=== PATIENT | female | born 2000 | race Caucasian/White ===

== ENCOUNTER 2024-03-29 19:18 | Outpatient (REF) | payer OTHER, SELFPAY ==
[2024-04-04 10:09] LABS: Age Gdln ACOG Testing Note (.); IGP, rfx Aptima HPV ASCU Note (.)
== END 2024-03-29 19:19 | disposition home or self-care (01) ==
LOC: LAB 19:18
PROVIDERS: Visit Provider Physician Assistant
DX: Z01.419 Encounter for gynecological examination (general) (routine) without abnormal findings (principal)
CPT/HCPCS: G0145

== ENCOUNTER 2025-08-05 14:38 | Emergency (ER) | payer BC, SELFPAY ==
--- OUTSIDE RECORDS SUMMARY | 2025-08-01 20:33 | XMS_ITS | Encounter Summary ---
Author Organization [facility] [employer] [facility] tem Address [id number] [address] [place] [address] Care Team Providers Care Floor Covering Printer Name Role Phone Donald Singleton MD Primary Care Provider [phone] Reason for Visit * Reason Comments Dizziness Pt reports lighthead edness and flutter feeling in her chest. Pt reports headaches and tingling bilateral hands at times. Pt started metoprolol about a month ago. Encounter Details Date Type Department Care Team (Late st Contact Info) Description 08/01/2025 8:33 PM EDT - 08/01/2025 10:25 PM EDT Emergency [facility] - Emergency [address] [place] [address] Tre Cerrato [address] [facility], [address]rd [place] [address] Lightheadedness (Primary Dx); Acute cystitis without hematuria Discharge Disposition: Home Social History Tobacco Use Types Packs/Day Years Used Date Smoking Tobacco: Former Cigarettes Smokeless Tobacco: Never Comments:3 cigarettes per da y Alcohol Use Standard Drinks/Week Comments Not Currently 0 (1 standard drink = 0.6 oz pur e alcohol) Childcare Answer Date Recorded Childcare Unknown 05/09/2019 Employment Answer Date Recorded Employment Unknown 05/09/2019 Hunger Screening Answer Date Recorded Within the past 12 months we worried whether our food would run out before we got money to buy more. Never True 08/01/2025 Within the past 12 months th e food we bought just didn't last and we didn't have money to get more. Never True 08/01/2025 Purpose - Life Answer Date Recorded Purpose and direction in life Unknown Comments No Sex and Gender Information Value Date Recorded Sex Assigned at Female 04/22/2021 7:15 PM EDT Legal Sex Female 12:13 PM EDT Gender Identity Female 04/22/2021 7:15 PM EDT Sexual Orientation Straight 04/22/2021 7: 15 PM EDT documented as of this encounter Last Filed Vital Signs Vital Sign Reading Time Taken Comments Blood Pressure 109/55 08/01/2025 8:38 PM EDT Pulse 69 08/01/2025 8:38 PM EDT Temperature 37 C (98.6 F) 08/01/2025 7:54 PM EDT Respiratory Rate 16 08/01/2025 8:38 PM EDT Oxygen Saturation 97% 08/01/2025 8:38 PM EDT Inhaled Oxygen Concentration - - Weight 68 kg (150 lb) 08/01/2025 7:54 PM EDT Height 157.5 cm (5' 2 ) 08/01/2025 7:54 PM EDT Body Mass Index 27.44 08/01/2025 7:54 PM EDT documented in this encounter Discharge Instructions * Discharge Instructions* ROSIE Garcia - 08/01/2025 10:05 PM EDT Change positions slowly from lying to sitting to standing Drink plenty of fluids Complete your course of antibiotics Please schedule your outpatient testing and follow-up with your proofer apprentice Return to ER immediately for new worse or worrisome concerns * Attachments The following attachments cannot be sent through Care Everywhere. * Urinary Tract Infection? Adult ED ([place]) documented in this encounter Medications at Time of Discharge CEPHalexin (KEFLEX) 500 mg capsule Take 1 capsule (500 mg total) by mouth in the morning and 1 capsule (500 mg total) before bedtime. Do all this for 10 days. 20 capsule 08/01/2025 08/11/2025 metoprolol succinate XL (TOPROL XL) 25 mg 24 hr tablet Take 0.5 tablets (12.5 mg total) by mouth in the morning. 45 tablet 3 07/04/2025 documented as of this encounter ED Notes * Tre Cerrato, - 08/01/2025 8:56 PM EDT Images from the original note were not included. [facility] - EMERGENCY Pt Name: Ángela Tracy Birthdate: 2000 Chief Complaint: Chief Complaint Patient presents with Dizziness Pt reports lightheadedness and flutter feeling in her chest. Pt reports headaches and tingling bilateral hands at times. Pt started metoprolol about a month ago. History of Present Illness: Patient here for evaluation of feeling lightheaded dizzy and heart palpitations. Patient was evaluated by Cardiology and had an outpatient Holter monitor showing occasional PVCs. She was started on low-dose metoprolol 12.5 mg q.d. On the medications for about 1 month. She notices the palpitations usually when she is up moving around. Occasionally she has dull low midsternal to epigastric discomfort and occasional shortness of breath. She has also been occasionally nauseated but not vomiting andhaving intermittent headaches in the morning. Patient is also ordered by Cardiology to have thyroidlevels drawn as well as echocardiogram and stress test but she is not scheduled any of these tests.She feels lightheaded and dizzy when she gets up. She uses a tobacco vape. Denies any history of hypertension hyperlipidemia, or diabetes. Denies anyfamily history of cardiac disease. She does have anxiety and depression in his currently on Cymbalta which she has been out of for the past couple of days and has a refill waiting for her at the pharmacy. She occasionally feels hot and feels tingling in her hands Past Medical History: Past Medical History: Diagnosis Date Anxiety Depression PONV (postoperative nausea and vomiting) Past Surgical History: Past Surgical History: Procedure Laterality Date ARTHROSCOPY KNEE Left 10/17/2018 Performed by Jr Juan A Garcia DO at [facility] SECTION KNEE ARTHROSCOPY Left 2013 LAPAROSCOPIC CHOLECYSTECTOMY N/A 05/05/2021 Performed by Rohith Valentin DO at [facility] Family History: Family History Problem Relation Age of Onset No Known Problems Mother No Known Problems Father No Known Problems Sister No Known Problems Brother No Known Problems Son Social History: Social History Socioeconomic History Marital status: Tobacco Use Smoking status: Former Types: Cigarettes Smokeless tobacco: Never Tobacco comments: 3 cigarettes per day Vaping Use Vaping status: Every Day Substance and Sexual Activity Alcohol use: Not Currently Drug use: Yes Types: Marijuana Comment: few puffs daily Sexual activity: Defer Partners: Male Other Topics Concern Caffeine Use Yes Social Drivers of Health Financial Resource Strain: Low Risk (06/21/2025) Received from [facility] Overall Financial Resource Strain (CARDIA) Difficulty of Paying Living Expenses: Not very hard Food Insecurity: No Food Insecurity (08/01/2025) Hunger Screening Food Insecurity - Worry: Never True Food Insecurity - Inability: Never True Transportation Needs: No Transportation Needs (06/21/2025) Received from [facility] PRAPARE - Transportation Lack of Transportation (Medical): No Lack of Transportation (Non-Medical): No Physical Activity: Sufficiently Active (06/21/2025) Received from [facility] Exercise Vital Sign Days of Exercise per Week: 5 days Minutes of Exercise per Session: 30 min Stress: Stress Concern Present (06/21/2025) Received from [facility] Occupational Health - Occupational Stress Questionnaire Feeling of Stress : Rather much Social Connections: Socially Isolated (06/21/2025) Received from [facility] Social Connection and Isolation Panel [NHANES] Frequency of Communication with Friends and Family: Once a week Frequency of Social Gatherings with Friends and Family: Once a week Attends Holiness Services: Never Active Member of Clubs or Organizations: No Attends Club or Organization Meetings: Never Marital Status: Interpersonal Safety: Not At Risk (06/21/2025) Received from [facility] Humiliation, Afraid, Rape, and Kick questionnaire Fear of Current or Ex-Partner: No Emotionally Abused: No Physically Abused: No Sexually Abused: No Housing Instability: Low Risk (06/21/2025) Received from [facility] Housing Stability Vital Sign Unable to Pay for Housing in the Last Year: No Number of Times Moved in the Last Year: 0 Homeless in the Last Year: No Review of Systems: Review of Systems Physical Exam: ED Triage Vitals [08/01/251953] Temp Heart Rate Resp BP SpO2 37 ??C (98.6 ??F) 87 20 106/83 97 % Temp Source Heart Rate Source Patient Position BP Location FiO2 (%) Oral Pulse Ox Sitting Left arm -- Vitals: 08/01/25195308/01/252037 BP: 106/83 109/55 Temp: 37 ??C (98.6 ??F) TempSrc: Oral Pulse: 87 69 Resp: 20 16 SpO2: 97% 97% MAP (mmHg): 71 Height: 157.5 cm (5' 2 ) Weight: 68 kg (150 lb) 97 Physical Exam Vitals reviewed. HENT: Head: Normocephalic and atraumatic. Eyes: Conjunctiva/sclera: Conjunctivae normal. Cardiovascular: Rate and Rhythm: Normal rate. Pulmonary: Effort: Pulmonary effort is normal. Breath sounds: Normal breath sounds. Abdominal: General: There is no distension. Palpations: Abdomen is soft. Musculoskeletal: General: Normal range of motion. Cervical back: Normal range of motion and neck supple. Skin: General: Skin is warm and dry. Neurological: General: No focal deficit present. Mental Status: She is alert and oriented to person, place, and time. GCS: GCS eye subscore is 4. GCS verbal subscore is 5. GCS motor subscore is 6. Procedure: Procedures Re-evaluation: Re-Evaluation Medical Decision Making Patient here for episodes of dizziness and lightheadedness with standing as well as heart palpitations tingling in the hands. She is in a normal sinus rhythm. She had recently underwent cardiology evaluation for palpitations with the findings of PVCs on her Holter monitor for which she was started on metoprolol. Orthostatics were positive in so much as her heart rate went up with standing. She was given intravenous fluids here. Urine is also positive for moderate leuks which was sent for culture and she will be started empirically on Keflex. He does have some outpatient testing including stress test and ultrasound which still needs to be completed and I encouraged her to call to schedule these. Thyroid levels cardiac markers were all within normal limits. She will be discharged home to follow up with the proofer apprentice and further outpatient testing but I advised her to return in the meantime for new worse or worrisome concerns. Patient verbalized understanding in his agreeable to this plan of care Amount and/or Complexity of Data Reviewed Labs: ordered. Details: Labs notable for: Urine with moderate leuks sent for culture ECG/medicine tests: ordered. Risk Prescription drug management. ED Course: ED Course as of 08/01/252322Aug 01, 20252204 Patient is was updated on test results. Plan to treat for urinary tract infection and send urine for culture. Advised to call to schedule her outpatient testing, follow up with her primary doctor and proofer apprentice but return in the meantime for new worse or worrisome concerns. Patient verbalized understanding and she is agreeable to plan of care [RK] ED Course User Index [RK] Cecilia Richmond APRN-MINI Clinical Impressions as of 08/01/25 232 Lightheadedness Acute cystitis without hematuria . ED Disposition ED Disposition Discharge Date/Time TueAug 01, 2025 10:05 PM Comment At the time of discharge, the plan has been discussed with the patient regarding the diagnosis and prognosis. All questions have been answered. Verbal discharge instructions were discussed with the patient. The patient has been advised to follow up w ith their Primary Care Provider and Specialist call to schedule. The patient was also instructed to return to the ED if their symptoms change, worsen, new symptoms arise or if they have any additional concerns. Medications Prescribed this Visit Sig CEPHalexin (KEFLEX) 500 mg capsule Take 1 capsule (500 mg total) by mouth in the morning and 1 capsule (500 mg total) before bedtime. Do all this for 10 days. Shared/Split Visit 21:02 EDT Marcelo Mazariegos (scribe), scribed for and in the presence of: Dr. Michael Cerrato who performed the above service. IDr. Michael personally performed a [id number] diagnostic evaluation on this patient. I personally made and approved the management plan for this patient and take responsibility for the patient management. Additional Notes/Findings: Ángela Tracy is a 25 y.o. female presenting to the ED for chief complaint of dizziness. Pt states that she started having issues in December and it took some timefor Cardiology to get her in. Pt reports that she was given beta blockers about a month ago. Pt notes that this morning she woke up feeling like I was in zero gravity. Pt states that she also felt l earl her heart was skipping beats or beating too hard. Pt reports that her symptoms were the worst while standing up. Exam findings as follows: Constitutional: Awake and alert HENT: Head normocephalic and atraumatic Eyes: conjunctiva unremarkable Cardiovascular: Heart rate regular Pulmonary: Easy work of breathing, speaking full sentences Abdominal: Flat and non-distended Skin: Warm and dry Musculoskeletal: Moving all extremities spontaneously Neurological: Alert and oriented x3 Please note that portions of this note were completed with a voice recognition program. Efforts were made to edit the dictations but occasionally words are mis-transcribed. ROSIE Garcia 08/01/252101 Marcelo Feldman 08/01/252107 Marcelo Feldman 08/01/252110 ROSIE Garcia 08/01/25 2319 Tre Cerrato DO 08/01/25 2323 documented in this encounter Plan of Treatment Upcoming Encounters Date Type Department Care Team (Late st Contact Info) Description 09/19/2025 9:30 AM EDT Office Visit [facility] [address] [place] [id number] Nixon Peterson MD [address] [place] [address] documented as of this encounter Procedures Procedure Name Priority Date/Time Associated Diagnosis Comments TROP I, HIGH SENSITIVITY 1 HOUR STAT 08/01/2025 9:09 PM EDT POCT , URINE (NUCG) Routine 08/01/2025 9:07 PM EDT POCT NURSING URINE MACROSCOPIC UA Routine 08/01/2025 9:05 PM EDT ER EXTRA URINE MARBLE STAT 08/01/2025 8:51 PM EDT ER EXTRA URINE CULTURE STAT 08/01/2025 8:51 PM EDT ER EXTRA URINE STAT 08/01/2025 8:51 PM EDT TROPONIN I, HIGH SENSITIVITY 0 HOUR STAT 08/01/2025 8:11 PM EDT EXTRA TUBES BLUE TOP Routine 08/01/2025 8:11 PM EDT TROPONIN I, HIGH SENSITIVITY 0 HOUR STAT 08/01/2025 8:11 PM EDT THYROID PROFILE INCLUDES TSH FT4 STAT Add-on 08/01/2025 8:11 PM EDT EXTRA TUBES Routine 08/01/2025 8:11 PM EDT CBC WITH AUTO DIFFERENTIAL STAT 08/01/2025 8:11 PM EDT MAGNESIUM STAT Add-on 08/01/2025 8:11 PM EDT COMPREHENSIVE METABOLIC PANEL STAT 08/01/2025 8:11 PM EDT ECG 12-LEAD STAT 08/01/2025 7:58 PM EDT documented in this encounter Results * Troponin I, High Sensitivity 1 Hour (08/01/2025 9:09 PM EDT) [facility] TROPONIN I, HIGH SENSITIVITY <2 <16 ng/L 08/01/2025 9:39 PM EDT [facility] Blood Venous blood / Unknown Venipuncture / Unknown 08/01/2025 9:09 PM EDT 08/01/2025 9:11 PM EDT us Tre Cerrato DO LAB BLOOD ORDERABLES Final Resul t [facility] [address] [place] [address], [place] * POCT , urine (08/01/2025 9:07 PM EDT) [facility] POC Urine Negative Negative, Indeterminate 08/01/2025 9:00 PM EDT [facility] Urine 08/01/2025 9:07 PM EDT 08/01/2025 9:00 PM EDT us Tre Cerrato DO POINT OF CARE TEST ORDERABLES Fi nal Result [facility] [address] [place] [address], [place] * (ABNORMAL) POCT Nursing Urine Macroscopic UA (08/01/2025 9:05 PM EDT) POC Urine Specific [place] 1.020 1.010, 1.015, 1.020, 1.025 08/01/2025 8:54 PM EDT [facility] POC Urine Leukocyte Esterase Moderate(A) Negative 08/01/2025 8:54 PM EDT [facility] POC Urine Nitrite Negative Negative 08/01/2025 8:54 PM EDT [facility] POC Urine pH 7.0 5.0, 6.0, 6.5, 7.0, 7.5, 8.0, 8.5, 5.5 08/01/2025 8:54 PM EDT [facility] POC Urine Protein Negative Negative 08/01/2025 8:54 PM EDT [facility] POC Urine Glucose Negative Negative 08/01/2025 8:54 PM EDT [facility] POC Urine Ketones Negative Negative 08/01/2025 8:54 PM EDT [facility] POC Urine Urobilinogen 0.2 E.U./dL 08/01/2025 8:54 PM EDT [facility] POC Urine Bilirubin Negative Negative 08/01/2025 8:54 PM EDT [facility] POC Urine Blood/HGB Negative Negative 08/01/2025 8:54 PM EDT [facility] Urine 08/01/2025 9:05 PM EDT 08/01/2025 8:54 PM EDT Tre Cerrato DO POINT OF CARE TEST ORDERABLES Fi nal Result Performing Organization Address City/[facility] de Phone Number [address] [place] [address], [place] * Extra Urine [place] (08/01/2025 8:51 PM EDT) Extra Tube Auto Resulted 08/01/2025 10:01 PM EDT [facility] Urine Urine specimen collection, clean catch / Unknown 08/01/2025 8:51 PM EDT 08/01/2025 9:11 PM EDT Tre Cerrato DO URINE ORDERABLES Final Result Performing Organization Address [facility] de Phone Number [address] [place] [address], [place] * Extra Urine Culture (08/01/2025 8:51 PM EDT) Extra Tube Auto Resulted 08/01/2025 10:01 PM EDT [facility] Urine Urine specimen collection, clean catch / Unknown 08/01/2025 8:51 PM EDT 08/01/2025 9:11 PM EDT Tre Cerrato DO URINE ORDERABLES Final Result Performing Organization Address City/[facility] de Phone Number [address] [place] [address], [place] * Extra Urine (08/01/2025 8:51 PM EDT) Extra Tube Auto Resulted 08/01/2025 10:01 PM EDT [facility] Urine Urine / Unknown 08/01/2025 8 :51 PM EDT 08/01/2025 9:11 PM EDT Tre Cerrato DO URINE ORDERABLES Final Result Performing Organization Address City/[facility] Co de Phone Number [address] [place] [address], [place] * Magnesium (08/01/2025 8:11 PM EDT) MAGNESIUM 2.1 1.8 - 2.6 mg/dL 08/01/2025 9:45 PM EDT [facility] Blood Venous blood / Unknown Venipuncture / Unknown 08/01/2025 8:11 PM EDT 08/01/2025 8:31 PM EDT Cecilia Richmond CIRCULAR DISTRIBUTOR-FIELD SERVICE CONSULTANT LAB BLOOD ORDERABLES Final Result Performing Organization Address City/[facility]/ZIP Co de Phone Number [address] [place] [address], [place] * Thyroid profile includes TSH FT4 (08/01/2025 8:11 PM EDT) FREE T4 0.90 0.61 - 1.60 ng/dL 08/01/2025 10:09 PM EDT [facility] TSH 0.97 0.49 - 4.67 uIU/mL 08/01/2025 10:09 PM EDT [facility] Blood Venous blood / Unknown Venipuncture / Unknown 08/01/2025 8:11 PM EDT 08/01/2025 8:31 PM EDT Cecilia Richmond CIRCULAR DISTRIBUTOR-FIELD SERVICE CONSULTANT LAB BLOOD ORDERABLES Final Result [address] [place] [address], [place] * Light Blue Top (08/01/2025 8:11 PM EDT) Extra Tube Auto Resulted 08/01/2025 10:01 PM EDT [facility] Blood Venous blood / Unknown 08/01/2025 8:11 PM EDT 08/01/2025 8:31 PM EDT [facility] [place] BLOOD ORDERABLES Final Resul t Performing Organization Address City/[facility]/ZIP Co de Phone Number [address] [place] [address], [place] * Troponin I, High Sensitivity 0 Hour (08/01/2025 8:11 PM EDT) TROPONIN I, HIGH SENSITIVITY <2 <16 ng/L 08/01/2025 9:05 PM EDT [facility] Blood Venous blood / Unknown Venipuncture / Unknown 08/01/2025 8:11 PM EDT 08/01/2025 8:31 PM EDT [facility] LAB BLOOD ORDERABLES Final Resul t Performing Organization Address City/[facility]/ZIP Co de Phone Number [address] [place] [address], [place] * Comprehensive metabolic panel (08/01/2025 8:11 PM EDT) SODIUM 138 134 - 146 mmol/L 08/01/2025 8:58 PM EDT [facility] POTASSIUM 3.9 3.5 - 5.0 mmol/L 08/01/2025 8:58 PM EDT [facility] CHLORIDE 108 98 - 109 mmol/L 08/01/2025 8:58 PM EDT [facility] CARBON DIOXIDE 22 22 - 32 mmol/L 08/01/2025 8:58 PM EDT [facility] ANION GAP 8 5 - 15 mmol/L 08/01/2025 8:58 PM EDT [facility] BLOOD UREA NITROGEN 13 5 - 23 mg/dL 08/01/2025 8:58 PM EDT [facility] CREATININE 0.83 0.40 - 1.00 mg/dL 08/01/2025 8:58 PM EDT [facility] Comment:METHOD TRACEABLE TO IDMS STANDARD GLUCOSE 88 65 - 99 mg/dL 08/01/2025 8:58 PM EDT [facility] CALCIUM 9.5 8.5 - 10.5 mg/dL 08/01/2025 8:58 PM EDT [facility] TOTAL PROTEIN 7.8 6.0 - 8.0 g/dL 08/01/2025 8:58 PM EDT [facility] ALBUMIN 4.6 3.2 - 5.3 g/dL 08/01/2025 8:58 PM EDT [facility] ALKALINE PHOSPHATASE 61 39 - 130 U/L 08/01/2025 8:58 PM EDT [facility] AST 19 <=41 U/L 08/01/2025 8:58 PM EDT [facility] ALT 13 <=31 U/L 08/01/2025 8:58 PM EDT [facility] BILIRUBIN,TOTAL 0.7 0.3 - 1.2 mg/dL 08/01/2025 8:58 PM EDT [facility] EGFR Non-Race Dependent >90 >=60 ml/min/1.7 3sq.m 08/01/2025 8:58 PM EDT [facility] Comment: eGFR not reported due to non-numeric value for Creatinine. Reported eGFR is based on the CKD-EPI 2020 equation that does not use a race coefficient. Blood Venous blood / Unknown Venipuncture / Unknown 08/01/2025 8:11 PM EDT 08/01/2025 8:31 PM EDT us Tre Cerrato DO LAB BLOOD ORDERABLES Final Resul t [facility] [address] [facility] [place] [address], * CBC auto differential (08/01/2025 8:11 PM EDT) WBC 6.4 4 - 11 x10E9/L 08/01/2025 8:47 PM EDT [facility] RBC Count 4.22 3.8 - 5.2 X10E12/L 08/01/2025 8:47 PM EDT [facility] Hemoglobin 13.1 11.7 - 15.5 g/dL 08/01/2025 8:47 PM EDT [facility] Hematocrit 38.2 35 - 47 % 08/01/2025 8:47 PM EDT [facility] MCV 91 80 - 100 fL 08/01/2025 8:47 PM EDT [facility] MCH 31.1 27 - 34 pg 08/01/2025 8:47 PM EDT [facility] MCHC 34.4 32 - 36 g/dL 08/01/2025 8:47 PM EDT [facility] RDW 12.6 11.5 - 15 % 08/01/2025 8:47 PM EDT [facility] Platelet Count 197 150 - 450 X10E9/L 08/01/2025 8:47 PM EDT [facility] MPV 10.3 7 - 12 fL 08/01/2025 8:47 PM EDT [facility] Neutrophils % 63.9 % 08/01/2025 8:47 PM EDT [facility] Lymphocytes % 25.8 % 08/01/2025 8:47 PM EDT [facility] Monocytes % 8.5 % 08/01/2025 8:47 PM EDT [facility] Eosinophils % 0.9 % 08/01/2025 8:47 PM EDT [facility] Basophils % 0.9 % 08/01/2025 8:47 PM EDT [facility] Neutrophils Absolute (A) 4.1 1.5 - 6.6 10*3/uL 08/01/2025 8:47 PM EDT [facility] Lymphocytes Absolute 1.7 1.0 - 3.5 10*3/uL 08/01/2025 8:47 PM EDT [facility] Monocytes Absolute 0.5 0.0 - 0.9 10*3/uL 08/01/2025 8:47 PM EDT [facility] Eosinophils Absolute 0.1 0.0 - 0.4 10*3/uL 08/01/2025 8:47 PM EDT [facility] Basophils Absolute 0.1 0.0 - 0.2 10*3/uL 08/01/2025 8:47 PM EDT [facility] Differential Type AUTOMATED DIFFERENTIAL 08/01/2025 8:47 PM EDT [facility] Blood Venous blood / Unknown Venipuncture / Unknown 08/01/2025 8:11 PM EDT 08/01/2025 8:31 PM EDT [facility] LAB BLOOD ORDERABLES Final Resul t [facility] [address] [place] [address], [place] * ECG 12 lead (08/01/2025 7:58 PM EDT) 08/01/2025 7:58 PM EDT Narrative TRACEMASTERVUE - 08/01/2025 11:23 PM EDT [facility] ECG ORDERABLES Final Result Performing Organization Address City/[facility]/ZIP Co de Phone Number TRACEMASTERVUE documented in this encounter Visit Diagnoses Diagnosis Lightheadedness- Primary Dizziness and giddiness Acute cystitis without hematuria documented in this encounter Administered Medications Inactive Administered Medications - up to 3 most recent administrations Medication Order MAR Action Action Date Dose Rate Site CEPHalexin (KEFLEX) capsule 500 mg 500 mg, oral, Once, On Mahsa 08/01/25 at 3, For 1 dose, Look-alike/sound-alike medication - verify indication for use., Indication: UTI Given 08/01/2025 10:00 PM EDT 500 mg sodium chloride 0.9 % bolus 750 mL, intravenous, at 1,451.6 mL/hr, Administer over 31 Minutes, Once, On Mahsa 08/01/25 at 3, For 1 dose New Bag 08/01/2025 9:19 PM EDT 750 mL 986 mL/hr sodium chloride 0.9 % flush 3 mL 3 mL, intravenous, As needed, line care, before and after each intermittent use, Starting on Mahsa 08/01/25 at 2110 documented in this encounter Active and Recently Administered Medications Times are shown in EDT. Scheduled Medication Order 07/30/2025 07/31/2025 08/01/2025 CEPHalexin (KEFLEX) capsule 500 mg (COMPLETED) 500 mg, oral, Once, On Mahsa 08/01/25 at 3, For 1 dose, Look-alike/sound-alike medication - verify indication for use., Indication: UTI 2199 (Given - Provid er: Claudia Thapa RN) sodium chloride 0.9 % bolus (COMPLETED) 750 mL, intravenous, at 1,451.6 mL/hr, Administer over 31 Minutes, Once, On Mahsa 08/01/25 at 2112, For 1 dose 2118 (New Bag - Prov ider: Claudia Thapa RN)2149 (Stop Bag - Provider: Claudia Thapa RN) PRN Medication Order 07/30/2025 07/31/2025 08/01/2025 sodium chloride 0.9 % flush 3 mL 3 mL, intravenous, As needed, line care, before and after each intermittent use, Starting on Mahsa 08/01/25 at 2110 documented in this encounter Care Teams Floor Covering Printer Relationship Specialty Start Date End Date Donald Singleton MD PCP - General Family Medicine 10/13/18 documented as of this encounter
[2025-08-05] VITALS (12 sets, daily range): BP systolic 114–115; BP diastolic 65–78; PULSE 44–81; TEMP 36.7; O2SAT 96–100; BMI 27.4
--- OUTSIDE RECORDS SUMMARY | 2025-08-05 13:37 | XMS_ITS | Encounter Summary ---
Author Organization [facility] Address [id number] [address] [place] [address] Care Team Providers Care Firepot Operator And Tender Name Role Phone Donald Singleton MD Primary Care Provider [phone] Reason for Visit * Reason Comments Anxiety Vomiting Encounter Details Date Type Department Care Team (Late st Contact Info) Description 08/05/2025 1:37 PM EDT - 08/05/2025 1:58 PM EDT Emergency [facility] [address] [place] [id number] Discharge Disposition: Left Without Treatment Social History Tobacco Use Types Packs/Day Years [...] got money to buy more. Never True 08/05/2025 Within the past 12 months th e food we bought just didn't last and we didn't have money to get more. Never True 08/05/2025 Purpose - Life Answer Date Recorded Purpose [...] Sign Reading Time Taken Comments Blood Pressure 108/75 08/05/2025 1:57 PM EDT Pulse 53 08/05/2025 1:57 PM EDT Temperature 36.8 C (98.3 F) 08/05/2025 1:57 PM EDT Respiratory Rate 19 08/05/2025 1:57 PM EDT Oxygen Saturation 100% 08/05/2025 1:57 PM EDT Inhaled Oxygen Concentration - - Weight - - Height - - Body Mass Index - - documented in this encounter Medications at Time [...] as of this encounter ED Notes * Luci Estevez RN - 08/05/2025 1:56 PM EDT Pt reports having panic attack this morning and has been throwing up ever since. documented in this encounter Plan of Treatment Upcoming Encounters Date Type Department Care Team (Late st Contact Info) Description 09/19/2025 9:30 AM EDT Office Visit [facility] [address] [place] [address] Nixon Peterson MD [address] [place] [facility] [place] [address] documented as of this encounter Visit Diagnoses Not on filedocumented in this encounter Care Teams Firepot Operator And Tender Relationship Specialty Start Date End Date Donald Singleton MD PCP - General Family Medicine 10/13/18 documented as of this encounter
--- OUTSIDE RECORDS SUMMARY | 2025-08-05 14:52 | XMS_ITS | Clinical Summary ---
Author Organization [facility] Address [address] [place] [address] Care Team Providers Care Aeronautical Engineering Technologist Name Role Phone Rina Espino NP Unavailable [phone] Donald Singleton MD Primary Care Provider [phone] Rina Espino ORTHOPEDIC DENTIST Unavailable [phone] Allergies Active Allergy Reactions Criticality Noted Date Comments Latex Hives,Itching,Rash,Swelling Low 10/10/20 18 Medications busPIRone (Buspar) 5 MG tabletIndicatio ns:MARIELY (generalized anxiety disorder) Take 1 tablet (5 mg) by mouth every 8 (eight) hours if needed (anxiety) 90 tablet 5 Active Additional Information Patient not taking.Reported on 06/24/2025 DULoxetine (Cymbalta) [address] Drew ons:Moderate episode of recurrent major depressive disorder (HCC),MARIELY (generalized anxiety disorder) Take 1 capsule (30 mg) by mouth Daily Do not crush or chew. 30 capsule 1 5 Active Active Problems Problem Noted Date Diagnosed Date Paronychia of finger of right hand 04/23/2025 Assessment & Plan (04/23/2025 5:00 PM EDT): Epsom salt soak 3 times daily Atb, fu if not better Heart palpitations 04/04/2025 Assessment & Plan (06/24/2025 7:00 AM EDT): Reviewed cardiology notes Is going to have stress, echo, labs and wireless tele Overweight (BMI 25.0-29.9) 01/14/2025 MARIELY (generalized anxiety disorder) 01/14/2025 Assessment & Plan (06/24/2025 2:39 PM EDT): Stop fluoxetine Start duloxetine Take medication only as directed. This medication will take approximately 4-6 weeks to become effective. If any suicidal thoughts, thoughts of hurting others, or hallucinations contact the office or proceed to the Emergency Room for mental health evaluation. Medication may cause dry mouth, dizziness, and in some cases worsening in depression symptoms. Please contact the office if these occur. Assessment & Plan (04/23/2025 5:00 PM EDT): Current meds: buspar prn, and fluoxetine PHQ 9=7 MARIELY 7=5 Increase fluoxetine to 30mg daily Assessment & Plan (01/14/2025 12:51 PM EST): MARIELY 7=20 I have reviewed her ER notes, labs etc. I do strongly believe that her symptoms may be in fact secondary to extreme anxiety I will start on fluoxetine on 20mg daily, and vistaril Take medication only as directed. This medication will take approximately 4-6 weeks to become effective. If any suicidal thoughts, thoughts of hurting others, or hallucinations contact the office or proceed to the Emergency Room for mental health evaluation. Medication may cause dry mouth, dizziness, and in some cases worsening in depression symptoms. Please contact the office if these occur. Fu in 3 weeks Moderate episode of recurrent major depressive d isorder 01/14/2025 Assessment & Plan (06/24/2025 2:39 PM EDT): Stop fluoxetine Start duloxetine 30mg Take medication only as directed. This medication will take approximately 4-6 weeks to become effective. If any suicidal thoughts, thoughts of hurting others, or hallucinations contact the office or proceed to the Emergency Room for mental health evaluation. Medication may cause dry mouth, dizziness, and in some cases worsening in depression symptoms. Please contact the office if these occur. 8 weeks Assessment & Plan (04/23/2025 5:00 PM EDT): PHQ 9=7 Increase fluoxetine to 30mg daily Assessment & Plan (01/14/2025 12:57 PM EST): PHQ 9=12 Start fluxetine . Take medication only as directed. This medication will take approximately 4-6 weeks to become effective. If any suicidal thoughts, thoughts of hurting others, or hallucinations contact the office or proceed to the Emergency Room for mental health evaluation. Medication may cause dry mouth, dizziness, and in some cases worsening in depression symptoms. Please contact the office if these occur. Pt declined counseling and did not feel she needed the [facility] Hotline number Fu in 3 weeks Insomnia due to other mental disorder 01/14/2025 Assessment & Plan (01/14/2025 11:38 AM EST): Will start trazodone at 50mg for sleep Other chest pain 01/14/2025 Assessment & Plan (01/14/2025 12:58 PM EST): Reviewed ER notes and labs Cyst of ovary, right 01/09/2025 Irregular periods 01/09/2025 Resolved Problems Problem Noted Date Diagnosed Date Resolved Date Class 2 obesity 01/09/2025 01/14/2025 Encounters Date Type Department Care Team Description 07/02/2025 Telephone [facility] [address] [place] [address] Rina Espino NP 06/24/2025 2:00 PM EDT Office Visit [facility] [address] [place] [address] Rina Espino NP Moderate episode of recurrent major depressive disorder (HCC) (Primary Dx); MARIELY (generalized anxiety disorder) ; Heart palpitations 06/24/2025 Bamboo flowsheet [facility] [address] [place] [address] Rina Espino NP 06/21/2025 Travel 05/27/2025 Telephone [facility] [address] [place] [address] Rina Espino NP from Last 3 Months Social History Tobacco Use Types Packs/Day Years Used Date Smoking Tobacco: Every Day Smokeless Tobacco: Current Tobacco Cessation:Ready to Q uit: No; Counseling Given: Not Answered Comments:Pt vapes- has been in the last three years Alcohol Use Standard Drinks/Week Comments Never 0 (1 standard drink = 0.6 oz pur e alcohol) caffine: 2 cups daily B1300 Health Literacy Answer Date Recor ded How often do you need to hav e someone help you when you read instructions, pamphlets, or other written material from your doctor or pharmacy? Never 06/21/2025 Humiliation, Afraid, Rape, and Kick questionnair e Answer Date Recorded Within the last year, have y ou been afraid of your partner or ex-partner? No 06/21/2025 Within the last year, have y ou been humiliated or emotionally abused in other ways by your partner or ex-partner? No Within the last year, have y ou been kicked, hit, slapped, or otherwise physically hurt by your partner or ex-partner? No 06/21/2025 Within the last year, have y ou been raped or forced to have any kind of sexual activity by your partner or ex-partner? No 06/21/2025 Social Connection and Isolation Panel [NHANES] A nswer Date Recorded In a typical week, how many times do you talk on the phone with family, friends, or neighbors? Once a week 06/21/2025 How often do you get together with friends or re latives? Once a week 06/21/2025 How often do you attend cheondoism or judaism serv ices? Never 06/21/2025 Do you belong to any clubs o r organizations such as cheondoism groups, unions, fraternal or athletic groups, or school groups? No 06/21/2025 How often do you attend meet ings of the clubs or organizations you belong to? Never 06/21/2025 Are you , , di vorced, , never , or living with a partner? 06/21/2025 AUDIT-C Answer Date Recorded Q1: How often do you have a drink containing alc ohol? Monthly or less 06/21/2025 Q2: How many drinks containi ng alcohol do you have on a typical day when you are drinking? 1 or 2 06/21/2025 Q3: How often do you have si x or more drinks on one occasion? Never 06/21/2025 Overall Financial Resource Strain (CARDIA) Answe r Date Recorded How hard is it for you to pa y for the very basics like food, housing, medical care, and heating? Not very hard 06/21/2025 PHQ-2 Answer Date Recorded Patient Health Questionnaire-2 Score 3 01/14/2025 [facility] - Occupational Stress Questionnaire Answer Date Recorded Do you feel stress - tense, restless, nervous, or anxious, or unable to sleep at night because your mind is troubled all the time - these days? Rather much 06/21/2025 Exercise Vital Sign Answer Date Recorde d On average, how many days pe r week do you engage in moderate to strenuous exercise (like a brisk walk)? 5 days 06/21/2025 On average, how many minutes do you engage in exercise at this level? 30 min 06/21/2025 Hunger Vital Sign Answer Date Recorded Within the past 12 months, y ou worried that your food would run out before you got the money to buy more. Never true 06/21/20 Within the past 12 months, t he food you bought just didn't last and you didn't have money to get more. Never true 06/21/2025 PRAPARE - Transportation Answer Date Re corded In the past 12 months, has l ack of transportation kept you from medical appointments or from getting medications? No 05/29 In the past 12 months, has l ack of transportation kept you from meetings, work, or from getting things needed for daily living? No 06/21/2025 Housing Stability Vital Sign Answer Rudy e Recorded In the last 12 months, was t here a time when you were not able to pay the mortgage or rent on time? No 06/21/2025 In the past 12 months, how m any times have you moved where you were living? 0 06/21/2025 At any time in the past 12 m [facility], were you homeless or living in a fci (including now)? No 06/21/2025 Comments No Sex and Gender Information Value Date Recorded Sex Assigned at Not on file Legal Sex Female 11:47 PM EDT Gender Identity Not on file Sexual Orientation Not on file Last Filed Vital Signs Vital Sign Reading Time Taken Comments Blood Pressure 92/52 06/24/2025 2:12 PM EDT Pulse 63 06/24/2025 2:12 PM EDT Temperature 36.9 C (98.5 F) 06/24/2025 2:12 PM EDT Respiratory Rate 18 06/24/2025 2:12 PM EDT Oxygen Saturation 97% 06/24/2025 2:12 PM EDT Inhaled Oxygen Concentration - - Weight 70.4 kg (155 lb 3.2 oz) 06/24/2025 2:12 P M EDT Height 157.5 cm (5' 2 ) 03/29/2024 9:14 AM EDT Body Mass Index 28.39 03/29/2024 9:14 AM EDT Plan of Treatment Health Maintenance Due Date Last Done Comments Influenza Vaccine (#1) 2025 Insurance [facility] Care Teams Aeronautical Engineering Technologist Relationship Specialty Start Date End Date Donald Singleton MD PCP - General Family Medicine 01/08/25 Rina Espino NP [address] [place] [address] PCP - [place] [employer] 02/26/25 Rina Espino NP Nurse Practitioner Family Medicine 09/11/24
--- OUTSIDE RECORDS SUMMARY | 2025-08-05 14:52 | XMS_ITS | Clinical Summary ---
Author Organization [email or web address] tem Address [id number] [address] [place] [address] Care Team Providers Care Powerhouse Operator Name Role Phone Donald Singleton MD Primary Care Provider [phone] Allergies Active Allergy Reactions Criticality Noted Date Comments Latex Rash,Hives,Itching,Swelling Low 10/10/20 18 Medications metoprolol succinate XL (TOPROL XL) 25 mg 24 hr tablet Take 0.5 tablets (12.5 mg total) by mouth in the morning. 45 tablet 3 07/04/2025 Active CEPHalexin (KEFLEX) 500 mg capsule Take 1 capsule (500 mg total) by mouth in the morning and 1 capsule (500 mg total) before bedtime. Do all this for 10 days. 20 capsule 08/01/2025 08/11/20 25 Active DULoxetine (CYMBALTA) 30 mg capsule Take 1 capsule (30 mg total) by mouth in the morning. 06/24/2025 07/24/20 25 Active Problems No known active problems Encounters Date Type Department Care Team Description 08/05/2025 1:37 PM EDT - 08/05/2025 1:58 PM EDT Emergency [facility] - Emergency [address] [place] [id number] Discharge Disposition: Left Without Treatment 08/01/2025 8:33 PM EDT - 08/01/2025 10:25 PM EDT Emergency [facility] - Emergency [address] [facility] [id number] Tre Cerrato DO Lightheadedness (Primary Dx); Acute cystitis without hematuria Discharge Disposition: Home 08/01/2025 Travel 07/03/2025 Telephone [facility] [address] [place] [phone] Alba Nunez RN Med change 07/01/2025 Results Follow-Up [facility] [address] [place] [address] Alba Nunez RN Wireless Telemetry (In Office) 06/10/2025 10:30 AM EDT Ancillary Procedure [facility] [address] [place] [address] Palpitations 06/10/2025 10:00 AM EDT Office Visit [facility] [address] [place] [address] Bora Love MD Shuaib, Mohammed, MD Palpitations (Primary Dx); Sinus bradycardia; Chest pain, unspecified type; Vapes nicotine containing substance 06/10/2025 Travel 06/03/2025 Abstract [facility] [address] [place] [phone] External, Scanning Provider from Last 3 Months Family History Medical History Relation Name Comments No Known Problems Brother No Known Problems Father No Known Problems Mother No Known Problems Sister No Known Problems Son Relation Name Status Comments Brother Alive Father Alive Mother Alive Sister Alive Son Alive Social History Tobacco Use Types Packs/Day Years Used Date Smoking Tobacco: Former Cigarettes Smokeless Tobacco: Never Tobacco Cessation:Counseling Given: Not Answered Comments:3 cigarettes per day Alcohol Use Standard Drinks/Week Comments Not Currently [...] Orientation Straight 04/22/2021 7: 15 PM EDT Last Filed Vital Signs Vital Sign Reading [...] Mass Index 27.44 08/01/2025 7:54 PM EDT Plan of Treatment Upcoming Encounters Date Type Department Care Team (Late st Contact Info) Description 09/19/2025 9:30 AM EDT Office Visit [facility] [address] [place] [address] Nixon Peterson MD [address] [place] [address] Health Maintenance Due Date Last Done Comments Depression Screening 2013 Adult BMI Follow Up Plan 2019 Pap Smear 2022 Influenza Vaccine 07/29/2025 Adult BMI Screening 08/01/2026 08/01/2025 Tobacco Screening 08/01/2026 08/01/2025 DTaP,Tdap and Td Vaccines (8 - Td or Tdap) 12/24/2030 12/24/2020, 07/23/2013, 06/27/2006, Additional history exists Medical Devices Implanted Type Area Lace Pinner Device Identifier Shelf Expiration Date Model / Serial / Lot Meniscal Neftaly - Choco - [id number] Implanted:Qty: 1 on 10/17/2018 by Juan A Garcia Jr., DO at [facility] Other Implant Left: Knee Arthrex 02/25/2023 [id number] / NA / [id number] Procedures Procedure Name Priority Date/Time Associated Diagnosis [...] EXTRA URINE STAT 08/01/2025 8:51 PM EDT EXTRA TUBES BLUE TOP Routine 08/01/2025 8:11 PM EDT MAGNESIUM STAT Add-on 08/01/2025 8:11 PM EDT THYROID PROFILE INCLUDES TSH FT4 STAT Add-on 08/01/2025 8:11 PM EDT EXTRA TUBES Routine 08/01/2025 8:11 PM EDT TROPONIN I, HIGH SENSITIVITY 0 HOUR STAT 08/01/2025 8:11 PM EDT COMPREHENSIVE METABOLIC PANEL STAT 08/01/2025 8:11 PM EDT CBC WITH AUTO DIFFERENTIAL STAT 08/01/2025 8:11 PM EDT TROPONIN I, HIGH SENSITIVITY 0 HOUR STAT 08/01/2025 8:11 PM EDT ECG 12-LEAD STAT 08/01/2025 7:58 PM EDT WIRELESS TELEMETRY (IN OFFICE) Routine 06/10/2025 10:19 AM EDT Palpitations POCT EKG Routine 06/10/2025 Palpitations from Last 3 Months Results * Troponin I, High Sensitivity 1 Hour (08/01/2025 9:09 PM EDT) [facility] TROPONIN I, HIGH SENSITIVITY <2 <16 ng/L 08/01/2025 9:39 PM EDT [facility] Blood Venous blood / Unknown Venipuncture / Unknown 08/01/2025 9:09 PM EDT 08/01/2025 9:11 PM EDT [facility] BLOOD ORDERABLES Final Resul t Performing Organization Address City/[facility]/ZIP Co de Phone Number [address] [place] [address], [place] * POCT , urine (08/01/2025 9:07 PM EDT) [facility] POC Urine Negative Negative, Indeterminate 08/01/2025 9:00 PM EDT [facility] Urine 08/01/2025 9:07 PM EDT 08/01/2025 9:00 PM EDT [facility] POINT OF CARE TEST ORDERABLES Fi nal Result Performing Organization Address City/[facility]/ZIP Co de Phone Number [address] [place] [address], [place] * (ABNORMAL) POCT Nursing Urine Macroscopic UA (08/01/2025 9:05 PM EDT) [facility] POC Urine Specific [place] 1.020 1.010, 1.015, 1.020, 1.025 08/01/2025 8:54 PM EDT [facility] POC Urine Leukocyte Esterase Moderate(A) Negative 08/01/2025 8:54 PM EDT [facility] POC Urine Nitrite Negative Negative 08/01/2025 8:54 PM EDT [facility] POC Urine pH 7.0 5.0, 6.0, 6.5, 7.0, 7.5, 8.0, 8.5, 5.5 08/01/2025 8:54 PM EDT [facility] POC Urine Protein Negative Negative 08/01/2025 8:54 PM EDT [facility] POC Urine Glucose Negative Negative 08/01/2025 8:54 PM EDT [facility] POC Urine Ketones Negative Negative 08/01/2025 8:54 PM EDT [facility] POC Urine Urobilinogen 0.2 E.U./dL 08/01/2025 8:54 PM EDT [facility] POC Urine Bilirubin Negative Negative 08/01/2025 8:54 PM EDT [facility] POC Urine Blood/HGB Negative Negative 08/01/2025 8:54 PM EDT [facility] Urine 08/01/2025 9:05 PM EDT 08/01/2025 8:54 PM EDT [facility] DO POINT OF CARE TEST ORDERABLES Fi nal Result Performing Organization Address City/[facility] Co de Phone Number [facility] [address] [place] [address], * Extra Urine [place] (08/01/2025 8:51 PM EDT) Extra Tube Auto Resulted 08/01/2025 10:01 PM EDT [facility] Urine Urine specimen collection, clean catch / Unknown 08/01/2025 8:51 PM EDT 08/01/2025 9:11 PM EDT [facility] URINE ORDERABLES Final Result Performing Organization Address City/[facility] Co de Phone Number [address] [place] [address], [place] * Extra Urine Culture (08/01/2025 8:51 PM EDT) Extra Tube Auto Resulted 08/01/2025 10:01 PM EDT [facility] Urine Urine specimen collection, clean catch / Unknown 08/01/2025 8:51 PM EDT 08/01/2025 9:11 PM EDT Tre Cerrato DO URINE ORDERABLES Final Result Performing Organization Address [facility] Co de Phone Number [address] [place] [address], [place] * Extra Urine (08/01/2025 8:51 PM EDT) Extra Tube Auto Resulted 08/01/2025 10:01 PM EDT [facility] Urine Urine / Unknown 08/01/2025 8 :51 PM EDT 08/01/2025 9:11 PM EDT [facility] Cerrato DO URINE ORDERABLES Final Result Performing Organization Address [facility] Co de Phone Number [address] [place] [address], [place] * Troponin I, High Sensitivity 0 Hour (08/01/2025 8:11 PM EDT) TROPONIN I, HIGH SENSITIVITY <2 <16 ng/L 08/01/2025 9:05 PM EDT [facility] Blood Venous blood / Unknown Venipuncture / Unknown 08/01/2025 8:11 PM EDT 08/01/2025 8:31 PM EDT [facility] Cerrato DO LAB BLOOD ORDERABLES Final Resul t Performing Organization Address City/[facility] Co de Phone Number [address] [place] [address], [place] * Light Blue Top (08/01/2025 8:11 PM EDT) Extra Tube Auto Resulted 08/01/2025 10:01 PM EDT [facility] Blood Venous blood / Unknown 08/01/2025 8:11 PM EDT 08/01/2025 8:31 PM EDT [facility] BLOOD ORDERABLES Final Resul t Performing Organization Address City/[facility]/ZIP Co de Phone Number [address] [place] [address], [place] * Thyroid profile includes TSH FT4 (08/01/2025 8:11 PM EDT) FREE T4 0.90 0.61 - 1.60 ng/dL 08/01/2025 10:09 PM EDT [facility] TSH 0.97 0.49 - 4.67 uIU/mL 08/01/2025 10:09 PM EDT [facility] Blood Venous blood / Unknown Venipuncture / Unknown 08/01/2025 8:11 PM EDT 08/01/2025 8:31 PM EDT Cecilia Richmond ADJUNCT SOCIOLOGY PROFESSOR-CREW MANAGER LAB BLOOD ORDERABLES Final Result [address] [place] [address], [place] * CBC auto differential (08/01/2025 8:11 PM EDT) WBC 6.4 4 - 11 x10E9/L 08/01/2025 8:47 PM EDT [facility] RBC Count 4.22 3.8 - 5.2 X10E12/L 08/01/2025 8:47 PM EDT [facility] Hemoglobin 13.1 11.7 - 15.5 g/dL 08/01/2025 8:47 PM EDT [facility] Hematocrit 38.2 35 - 47 % 08/01/2025 8:47 PM EDT [facility] MCV 91 80 - 100 fL 08/01/2025 8:47 PM EDT [facility] MCH 31.1 27 - 34 pg 08/01/2025 8:47 PM EDT [facility] MCHC 34.4 32 - 36 g/dL 08/01/2025 8:47 PM EDT [facility] RDW 12.6 11.5 - 15 % 08/01/2025 8:47 PM EDT [facility] Platelet Count 197 150 - 450 X10E9/L 08/01/2025 8:47 PM EDT [facility] MPV 10.3 7 - 12 fL 08/01/2025 8:47 PM EDT [facility] Neutrophils % 63.9 % 08/01/2025 8:47 PM EDT [facility] Lymphocytes % 25.8 % 08/01/2025 8:47 PM EDT [facility] Monocytes % 8.5 % 08/01/2025 8:47 PM EDT [facility] Eosinophils % 0.9 % 08/01/2025 8:47 PM EDT [facility] Basophils % 0.9 % 08/01/2025 8:47 PM EDT [facility] Neutrophils Absolute (A) 4.1 1.5 - 6.6 10*3/uL 08/01/2025 8:47 PM EDT [facility] Lymphocytes Absolute 1.7 1.0 - 3.5 10*3/uL 08/01/2025 8:47 PM EDT [facility] Monocytes Absolute 0.5 0.0 - 0.9 10*3/uL 08/01/2025 8:47 PM EDT [facility] Eosinophils Absolute 0.1 0.0 - 0.4 10*3/uL 08/01/2025 8:47 PM EDT [facility] Basophils Absolute 0.1 0.0 - 0.2 10*3/uL 08/01/2025 8:47 PM EDT [facility] Differential Type AUTOMATED DIFFERENTIAL 08/01/2025 8:47 PM EDT [facility] Blood Venous blood / Unknown Venipuncture / Unknown 08/01/2025 8:11 PM EDT 08/01/2025 8:31 PM EDT [facility] BLOOD ORDERABLES Final Resul t Performing Organization Address City/[facility]/ZIP Co de Phone Number [address] [place] [address], [place] * Magnesium (08/01/2025 8:11 PM EDT) MAGNESIUM 2.1 1.8 - 2.6 mg/dL 08/01/2025 9:45 PM EDT [facility] Blood Venous blood / Unknown Venipuncture / Unknown 08/01/2025 8:11 PM EDT 08/01/2025 8:31 PM EDT Cecilia Richmond ADJUNCT SOCIOLOGY PROFESSOR-CREW MANAGER LAB BLOOD ORDERABLES Final Result Performing Organization Address City/[facility]/ZIP Co de Phone Number [address] [place] [address], [place] * Comprehensive metabolic panel (08/01/2025 8:11 PM EDT) SODIUM 138 134 - 146 mmol/L 08/01/2025 8:58 PM EDT [facility] POTASSIUM 3.9 3.5 - 5.0 mmol/L 08/01/2025 8:58 PM EDT [facility] CHLORIDE 108 98 - 109 mmol/L 08/01/2025 8:58 PM EDT [facility] CARBON DIOXIDE 22 22 - 32 mmol/L 08/01/2025 8:58 PM EDT [facility] ANION GAP 8 5 - 15 mmol/L 08/01/2025 8:58 PM EDT [facility] BLOOD UREA NITROGEN 13 5 - 23 mg/dL 08/01/2025 8:58 PM EDT [facility] CREATININE 0.83 0.40 - 1.00 mg/dL 08/01/2025 8:58 PM EDT [facility] Comment:METHOD TRACEABLE TO IDTX STANDARD GLUCOSE 88 65 - 99 mg/dL 08/01/2025 8:58 PM EDT [facility] CALCIUM 9.5 8.5 - 10.5 mg/dL 08/01/2025 8:58 PM EDT [facility] TOTAL PROTEIN 7.8 6.0 - 8.0 g/dL 08/01/2025 8:58 PM EDT [facility] ALBUMIN 4.6 3.2 - 5.3 g/dL 08/01/2025 8:58 PM EDT [facility] ALKALINE PHOSPHATASE 61 39 - 130 U/L 08/01/2025 8:58 PM EDT [facility] AST 19 <=41 U/L 08/01/2025 8:58 PM EDT [facility] ALT 13 <=31 U/L 08/01/2025 8:58 PM EDT [facility] BILIRUBIN,TOTAL 0.7 0.3 - 1.2 mg/dL 08/01/2025 8:58 PM EDT [facility] EGFR Non-Race Dependent >90 >=60 ml/min/1.7 3sq.m 08/01/2025 8:58 PM EDT [facility] Comment: eGFR not reported due to non-numeric value for Creatinine. Reported eGFR is based on the CKD-EPI 2020 equation that does not use a race coefficient. Blood Venous blood / Unknown Venipuncture / Unknown 08/01/2025 8:11 PM EDT 08/01/2025 8:31 PM EDT Tre Cerrato DO LAB BLOOD ORDERABLES Final Resul t [facility] [address] [place] [address], [place] * ECG 12 lead (08/01/2025 7:58 PM EDT) 08/01/2025 7:58 PM EDT Narrative TRACEMASTERVUE - 08/01/2025 11:23 PM EDT Tre Cerrato DO ECG ORDERABLES Final Result Performing Organization Address [facility] Co de Phone Number TRAC[facility]ALDERON * Wireless Telemetry (In Office) (06/10/2025 10:19 AM EDT) Anatomical Region Laterality Modality Other Narrative 06/29/2025 6:28 PM EDT Seven day continuous lunchroom monitor during which recording duration was 5 days and 10 hours patient remained sinus rhythm average heart of 70 beats per minute. No AFib. PVC burden of 1%. With symptoms of chest pain or shortness of breath or heart racing total 8 times associated sinus rhythm or sinus tachycardia and rare PVCs. Monitor shows possible symptomatic PVCs however burden is significantly low and did not have complete symptoms and arrhythmias correlation. Clinical correlation advised. Bora Orozco MD CV CARDIAC SERVICES ORDERABLE S Final Result * POCT EKG (06/10/2025) Bora Orozco MD ECG ORDERABLES Final Result Performing Organization Address City/[facility] Co de Phone Number MANUALLY TRANSCRIBED RESULTS from Last 3 Months Insurance ANTH Care Teams Powerhouse Operator Relationship Specialty Start Date End Date Donald Signleton MD PCP - General Family Medicine 10/13/18
--- OUTSIDE RECORDS SUMMARY | 2025-08-05 14:52 | XMS_ITS | Encounter Summary ---
Author Organization [facility] Address [address] [place] [address] Care Team Providers Care Size Cutter Name Role Phone Donald Singleton MD Primary Care Provider [phone] Unallocated, Niraj Reeves MD Primary Care Provi reagan Rina Espino FASHION STYLING INTERN Unavailable [phone] Donald Singleton MD Primary Care Provider [phone] Rina Espino FASHION STYLING INTERN Unavailable [phone] Encounter Details Date Type Department Care Team (Late st Contact Info) Description 05/29/2024 Orders Only [facility] [address] [place] [address] Rashida Fam LPN [address] [place] [address] [place] [address] Social History Tobacco Use Types Packs/Day Years Used Date Smoking Tobacco: Never Assessed Comments No Sex and Gender Information Value Date Recorded Sex Assigned at Not on file Legal Sex Female 11:47 PM EDT Gender Identity Not on file Sexual Orientation Not on file documented as of this encounter Plan of Treatment Not on file documented as of this encounter Procedures Procedure Name Priority Date/Time Associated Diagnosis Comments PAP SMEAR Routine 03/29/2024 12:00 AM EDT documented in this encounter Results * Pap Smear (03/29/2024 12:00 AM EDT) Swab Cervical swab / Unknown Alice Nurse [facility] LAB CYTOLOGY ORDERABLES Final Result EXTERNAL LAB documented in this encounter Visit Diagnoses Not on filedocumented in this encounter Care Teams Size Cutter Relationship Specialty Start Date End Date Donald Singleton MD PCP - General Family Medicine 03/29/24 09/10/24 Unallocated, Arnulfos MD Lala [address] [place] [address] PCP - General Family Medicine 09/11/24 01/07/25 Donald Singleton MD PCP - General Family Medicine 01/08/25 Rina Espino NP [address] [place] [address] PCP - [facility] 02/26/25 Rina Espino NP [address] [place] [address] Nurse Practitioner Family Medicine 09/11/24 documented as of this encounter
--- OUTSIDE RECORDS SUMMARY | 2025-08-05 14:52 | XMS_ITS | Clinical Summary ---
Author Organization [facility] Address [address] [place] [address] Care Team Providers Care Director [place] Name Role Phone Unavailable Primary Care Provider Unavailabl e Social History Tobacco Use Types Packs/Day Years Used Date Smoking Tobacco: Never Assessed Comments Unknown Sex and Gender Information Value Date Recorded Sex Assigned at Not on file Legal Sex Female 8:51 AM EST Gender Identity Not on file Sexual Orientation Not on file Plan of Treatment Health Maintenance Due Date Last Done Comments Depression Screen 2013 Varicella vaccine (1 of 2 - 13+ 2-dose series) 2014 HIV screen 2016 HPV vaccine (1 - 3-dose series) 2016 Chlamydia/GC screen 2017 Hepatitis C screen 2019 DTaP/Tdap/Td vaccine (1 - Tdap) 2020 Hepatitis B vaccine (1 of 3 - 19+ 3-dose series) 2020 Pap smear 2022 COVID-19 Vaccine ( - 2023-2 5 season) 2024 Flu vaccine (#1) 06/28/2025 Hepatitis A vaccine Aged Out No longe r eligible based on patient's age to complete this topic Hib vaccine Aged Out No longer eligi ble based on patient's age to complete this topic Meningococcal (ACWY) vaccine Aged Out No longer eligible based on patient's age to complete this topic Meningococcal B vaccine Aged Out No l onger eligible based on patient's age to complete this topic Pneumococcal 0-49 years Vaccine Aged Out No longer eligible based on patient's age to complete this topic Polio vaccine Aged Out No longer elig ible based on patient's age to complete this topic
--- NOTE | 2025-08-05 14:59 | ECG_ITS ---
[facility] Test Date: 2025-08-05 Pat Name: KATHI FINNEY Department: Room: - Gender: Female Mounter Sousaphones: : 2000 Requested By: [id number] Order Number: [id number] Reading MD: VERONICA ELAM Measurements Intervals [place] Rate: 42 P: 64 NV: 134 QRS: 68 QRSD: 82 T: 71 QT: 528 QTc: 471 Interpretive Statements 1130 Marked Sinus bradycardia 8304 Prolonged QTc interval 9150 abnormal ECG No previous ECG available for comparison Electronically Signed On 08-05-2025 19:12:56 EDT by VERONICA ELAM
--- NOTE | 2025-08-05 15:06 | ED_ITS ---
HPI HPI - General Adult General Chief complaint: Chest Pain Stated complaint: NAUSEA CHEST PAIN LIGHTHEADED Time Seen by Provider: 08/05/25 14:54 Source: patient Mode of arrival: walk-in Limitations: no limitations History of Present Illness HPI narrative: 25-year-old female presents to the emergency department for bodyaches and palpitations. She states sometimes her heart is running fast and sometimes it is running slow. She has a history of palpitations and is on metoprolol but did not take it today because she was nauseous. She states she is nauseous because she had a panic attack this morning and now she has got body aches and the nausea. She went to a different hospital emergency department but they were too busy so she came here instead Related Data Allergies Allergy/AdvReac Type Severity Reaction Status Date / Time latex Allergy Severe Rash Verified 08/05/25 14:41 Opioid HPI Opioid Management Most Recent Opioid Data: Last Pain Scale 7 Today, 14:42 Review of Systems ROS Narrative A ten point review of systems is negative except as noted above. PFSH PFSH Social History Little interest or pleasure in doing things: not at all Feeling down, depressed, or hopeless: not at all Exam Narrative Exam Narrative: Nurses note and vital signs reviewed and patient is not hypoxic. General: The patient appears well and in no apparent distress. Patient is resting comfortably on cart. Skin: Warm, dry, no pallor noted. There is no rash noted. Head: Normocephalic, atraumatic Eye: Normal conjunctiva, no drainage Ears, Nose, Mouth, and Throat: oral mucosa is moist. Nares patent. Cardiovascular: Regular Rate and Rhythm, bradycardic Respiratory: Patient is in no distress, no accessory muscle use, lungs are clear to auscultation, no wheezing, rales or rhonchi Back: non-tender GI: Soft and nontender Musculoskeletal: The patient has no evidence of calf tenderness, no pitting edema, symmetrical pulses noted bilaterally Neurological: A&O, normal speech Psychiatric: Cooperative Constitutional Vital Signs, click to edit/add: Last Vital Signs Temp 98.1 F 08/05/25 14:42 Pulse 49 L 08/05/25 14:42 Resp 20 08/05/25 14:42 BP 115/65 08/05/25 14:42 Pulse Ox 100 08/05/25 14:42 O2 Del Method Room Air 08/05/25 14:42 Course Vital Signs Vital signs: Vital Signs Temperature 98.1 F 08/05/25 14:42 Pulse Rate 49 L 08/05/25 14:42 Respiratory Rate 20 08/05/25 14:42 Blood Pressure 115/65 08/05/25 14:42 Pulse Oximetry 100 08/05/25 14:42 Oxygen Delivery Method Room Air 08/05/25 14:42 Temperature 98.1 F 08/05/25 14:42 Pulse Rate 49 L 08/05/25 14:42 Respiratory Rate 20 08/05/25 14:42 Blood Pressure 115/65 08/05/25 14:42 Pulse Oximetry 100 08/05/25 14:42 Oxygen Delivery Method Room Air 08/05/25 14:42 Medical Decision Making MDM Narrative Medical decision making narrative: Her workup is negative. This includes troponin and chest x-ray as well as other blood work and EKG. The patient is somewhat bradycardic but the patient states she is always like that because she is on metoprolol. She was given IV Toradol and Zofran and her body pains and her nausea have subsided and she is able to be discharged home. Treatment diagnosis and follow-up were discussed with the patient and her mother. I have no clinical suspicion of pulmonary embolism. Differential Diagnosis Differential Diagnosis: Dehydration, anxiety, acute kidney injury Lab Data Lab results reviewed: Yes I reviewed the patient's lab results Labs: Lab Results 08/05/25 Range/Units 15:14 WBC 9.1 (4.0-11.0) 10^3/uL RBC 4.18 L (4.20-5.40) 10^6/uL Hgb 13.2 (12.0-16.0) g/dL Hct 37.9 (36.0-48.0) % MCV 90.7 (81.0-99.0) fL MCH 31.6 (26.7-34.0) pg MCHC 34.8 (29.9-35.2) g/dL RDW 11.7 (11.0-15.0) % Plt Count 223 (150-450) 10^3/uL MPV 12.0 (9.5-13.5) fL Neut % (Auto) 92.6 H (43.0-75.0) % Lymph % (Auto) 4.5 L (20.5-60.0) % [place] % (Auto) 2.6 (1.7-12.0) % Eos % (Auto) 0.0 L (0.9-7.0) % Baso % (Auto) 0.1 L (0.2-2.0) % Neut # (Auto) 8.4 H (1.4-6.5) 10^3/uL Lymph # (Auto) 0.4 L (1.2-3.8) 10^3/uL [place] # (Auto) 0.2 L (0.3-0.8) 10^3/uL Eos # (Auto) 0.0 (0.0-0.7) 10^3/uL Baso # (Auto) 0.0 (0.0-0.1) 10^3/uL Abs Immat Gran (auto) 0.02 (0.00-0.03) 10^3/uL Imm/Tot Granulo (auto) 0.2 (0.0-0.5) % Sodium 144 (136-145) mmol/L Potassium 3.9 (3.5-5.1) mmol/L Chloride 106 (98-107) mmol/L Carbon Dioxide 19.7 L (21.0-32.0) mmol/L Anion Gap 22.2 BUN 13.0 (7.0-18.0) mg/dL Creatinine 0.73 (0.55-1.02) mg/dL Est GFR ( Amer) >60 (>=60 mL/min/1.73m^2) Est GFR (Non-Af Amer) >60 (>=60 mL/min/1.73m^2) BUN/Creatinine Ratio 17.8 Glucose 120 H (74-106) mg/dL Calcium 9.8 (8.5-10.1) mg/dL Troponin I High Sens <4.0 L (4.0-51.3) pg/mL Serum HCG, Qual Negative (NEGATIVE) Imaging Data Chest x-ray: Radiologist's impression: ITS Impressions Chest X-Ray 08/05/25 15:21 IMPRESSION: NO ACUTE PROCESS. Impression dictated by: Edward Mart Jr., D.O. 08/05/2025 3:33 PM Dictation Location: [place] [address] Electronically authenticated by: [id number] Y Date: 08/05/2025 15:33 ECG Data Attestation: I personally reviewed and interpreted this ECG as follows: (EKG on my interpretation shows sinus bradycardia with rate of 42) Discharge Plan Discharge Chief Complaint: Chest Pain Clinical Impression: Chest pain Patient Disposition: Home, Self-Care Time of Disposition Decision: 16:11 Condition: Good Mode of Transportation: Private Vehicle Print Language: Arabic Instructions: Chest Pain (ED) Referrals: Donald Singleton MD [Primary Care Provider, Family Practice] - 1 week
[2025-08-05] MEDS: 0.9 % SODIUM CHLORIDE 1,000 ML 1000 ML IV (15:21)
[2025-08-05] MEDS: KETOROLAC TROMETHAMINE 30 MG/ML VIAL IVP (15:21)
--- NOTE | 2025-08-05 15:21 | XR_ITS ---
The [address] [address] Patient Name: KATHI FINNEY MRN: [id number] date: 2000 Sex: F Assigned Patient Location: ER Current Patient Location: ER Accession/Order Number: [id number] Exam Date: 08/05/2025 15:18 Report Date: 08/05/2025 15:33 At the request of: DAMARIS NOVA MD Procedure: XR chest 1V Single view chest: CLINICAL HISTORY: Bradycardia, chest pain COMPARISON: None FINDINGS: The heart is normal in size. The lungs are clear. The pulmonary vasculature is normal. Mediastinum and hilar regions are unremarkable. No pleural effusions are seen. Visualized bones are intact. XR/XR chest 1V IMPRESSION: NO ACUTE PROCESS. Impression dictated by: Edward Mart Jr., D.OPedro 08/05/2025 3:33 PM Dictation Location: [place] [address] Electronically authenticated by: [id number] Y Date: 08/05/2025 15:33
[2025-08-05 15:27] LABS: Hematocrit 37.9 % (36.0-48.0); Hemoglobin 13.2 g/dL (12.0-16.0); Immature Granulocytes Abs Auto 0.02 10^3/uL (0.00-0.03); Immature Granulocytes Pct Auto 0.2 % (0.0-0.5); Lymphocytes Absolute Auto 0.4 10^3/uL (1.2-3.8); Mean Corpuscular HGB Conc 34.8 g/dL (29.9-35.2); Mean Corpuscular Hemoglobin 31.6 pg (26.7-34.0); Mean Corpuscular Volume 90.7 fL (81.0-99.0); Platelet Count 223 10^3/uL (150-450); Red Blood Count 4.18 10^6/uL (4.20-5.40); White Blood Count 9.1 10^3/uL (4.0-11.0)
[2025-08-05 15:44] LABS: Anion Gap 22.2; Blood Urea Nitrogen 13.0 mg/dL (7.0-18.0); Calcium 9.8 mg/dL (8.5-10.1); Carbon Dioxide 19.7 mmol/L (21.0-32.0); Chloride 106 mmol/L (98-107); Estimated GFR (African America >60 (>=60 mL/min/1.73m^2); Estimated GFR (Non-African Ame >60 (>=60 mL/min/1.73m^2); Glucose 120 mg/dL (74-106); Potassium 3.9 mmol/L (3.5-5.1); Sodium 144 mmol/L (136-145)
--- NOTE | 2025-08-05 16:17 | PC.NURSE ---
Pt presents to ER for palpitations Pt bradycardic on arrival but states this is her normal Pt state she had a panic attack in the night followed by this feeling of gitters in her heart that has not stopped Pt went to [place] ER but left before being seen and came to us later today Pt denies any other complaints at this time
== END 2025-08-05 16:37 | disposition home or self-care (01) ==
PROVIDERS: Emergency Provider Emergency Medicine; PCP Family Medicine
DX: R07.9 Chest pain, unspecified (principal); R00.2 Palpitations; R11.0 Nausea; Z79.899 Other long term (current) drug therapy
CPT/HCPCS: 36415; 71045; 80048; 84484; 84703; 85025; 93005; 96374; 96375; 99284; 99285; J1885; J2405